=== PATIENT | female | born 1950 | race Caucasian/White ===

== ENCOUNTER 2017-01-26 21:09 | Emergency (ER) | payer MEDICARE, OTHER ==
[2017-01-27 00:16] LABS: HEMOGLOBIN 12.4 gm/dl (12.3-15.3); RED BLOOD COUNT 4.28 M/UL (4.00-5.10); WHITE BLOOD COUNT 12.4 K/UL (4.5-11.0)
[2017-01-27 00:43] LABS: BUN/CREATININE RATIO 21 (0-10)
== END 2017-01-27 02:15 | disposition home or self-care (01) ==
LOC: ER1 21:09
PROVIDERS: Family Medicine
DX: R05 Cough (principal); I51.9 Heart disease, unspecified; R06.02 Shortness of breath; R63.4 Abnormal weight loss; R29.2 Abnormal reflex
CPT/HCPCS: 36415; 80053; 81001; 82550; 82553; 83874; 84484; 85025; 93005; 94664; 99285; J7050; Q9963

== ENCOUNTER 2022-05-22 17:07 | Emergency (ER) | payer SELFPAY ==
[2022-05-22] MEDS ORDERED: HYDROCODON-ACE1 EAC4 PO (22:26)
== END 2022-05-22 22:25 | disposition home or self-care (01) ==
LOC: ER1 17:07
DX: S83.92XA Sprain of unspecified site of left knee, initial encounter (principal); J45.909 Unspecified asthma, uncomplicated; W19.XXXA Unspecified fall, initial encounter; X50.9XXA Other and unspecified overexertion or strenuous movements or postures, initial encounter; Y92.89 Other specified places as the place of occurrence of the external cause; Y99.0 Civilian activity done for income or pay
CPT/HCPCS: 73564; 99283